=== PATIENT | female | born 1935 | race Caucasian/White ===

== ENCOUNTER 2016-04-02 20:01 | Emergency (ER) | payer MEDICARE, OTHER ==
[~2016-04-02] VITALS: Ht 165.1 cm; Wt 59.0 kg
[~2016-04-02 20:01] MED LIST: DILT40TA PO; FOLITAB22 PO; MER500PBAE IV; MORP30TA PO; NOR5T PO; PAR20T PO; VANC500I PO
[2016-04-02 21:35] LABS: Albumin 3.1 g/dL (3.4-5.0); BUN/Creatinine Ratio 15.6; Potassium 3.9 mmol/L (3.5-5.1)
[2016-04-02 21:38] LABS: Bilirubin, Total 0.8 mg/dL (0.2-1.0); Total Protein 6.6 g/dL (6.4-8.2)
[2016-04-02 22:11] LABS: DEFINITIVE VIEW TRANSMISSION; Hematocrit 15.8 % (36.0-46.0); Mean Corpuscular Hgb Conc. 34.1 g/dL (32.0-36.0); Mean Corpuscular Volume 93.9 fL (80.0-100.0); Mean Platelet Volume 11.4 fL (7.4-10.4); Platelet Count (auto) 96 10^3/uL (140-450); SUSPECT VIEW TRANSMISSION
[2016-04-02 22:16] LABS: Red Cell Distribution Width 22.2 % (11.6-16.0)
[2016-04-02 22:22] LABS: Hemoglobin 5.4 g/dL (12.2-16.2); White Blood Cell 1.5 10^3/uL (4.4-10.8)
[2016-04-02 22:23] LABS: Metamyelocytes % 0; Myelocytes % 0; Promyelocytes % 0; Reactive Lymphocytes 0
[2016-04-02] MEDS ORDERED: ONDANSETRON HCL 4 MG/2 ML VIAL IV ONE (23:00)
[2016-04-02] MEDS ORDERED: MORPHINE SULFATE 4 MG/ML SYRG IV ONE (23:00)
[2016-04-02 23:11] LABS: Anisocytosis Moderate; Giant Platelets Few; Ovalocytes FEW; Platelet Estimate Decreased; Tear Drop Cells FEW
[2016-04-03] VITALS (7 sets, daily range): BP systolic 93–127; BP diastolic 45–65
[2016-04-03] MEDS ORDERED: LORazepam 0.5 MG TAB PO ONE (03:00)
== END 2016-04-03 09:39 | disposition home or self-care (01) ==
LOC: ER 20:03
DX: M79.651 Pain in right thigh (principal); R53.1 Weakness; R50.9 Fever, unspecified; D64.9 Anemia, unspecified; D72.819 Decreased white blood cell count, unspecified; C90.00 Multiple myeloma not having achieved remission; Z96.641 Presence of right artificial hip joint; D69.6 Thrombocytopenia, unspecified; Z92.21 Personal history of antineoplastic chemotherapy; Z87.440 Personal history of urinary (tract) infections
CPT/HCPCS: 36415; 36430; 73700; 80053; 85007; 85027; 86850; 86900; 86901; 86920; 87040; 93005; 96374; 96375; 99285; J2270; J2405; J7030; P9016

== ENCOUNTER 2016-07-14 11:23 | Inpatient (IN) | payer MEDICARE, OTHER ==
[~2016-07-14] VITALS: Ht 165.1 cm; Wt 50.2 kg
[2016-07-14] VITALS (10 sets, daily range): BP systolic 101–140; BP diastolic 48–70
[2016-07-14 12:31] LABS: DEFINITIVE VIEW TRANSMISSION; Hematocrit 20.4 % (36.0-46.0); Mean Corpuscular Hemoglobin 34.1 pg (28.0-32.0); Mean Corpuscular Volume 103.3 fL (80.0-100.0); Mean Platelet Volume 11.4 fL (7.4-10.4); Platelet Count (auto) 138 10^3/uL (140-450); SUSPECT VIEW TRANSMISSION; White Blood Cell 2.2 10^3/uL (4.4-10.8)
[2016-07-14 12:40] LABS: Red Cell Distribution Width 25.3 % (11.6-16.0)
[2016-07-14 12:42] LABS: Hemoglobin 6.7 g/dL (12.2-16.2)
[2016-07-14 12:43] LABS: Metamyelocytes % 0; Myelocytes % 0; Promyelocytes % 0; Reactive Lymphocytes 0
[2016-07-14] MEDS ORDERED: KETOROLAC TROMETH 60MG/2ML VIAL IM ONE (13:00)
[2016-07-14 13:20] LABS: Albumin 3.5 g/dL (3.4-5.0); Alkaline Phosphatase 162 U/L (45-117); Anion Gap 9 (5-15); Aspartate Aminotransferase 14 U/L (15-37); BUN/Creatinine Ratio 22.1; Bilirubin, Total 0.9 mg/dL (0.2-1.0); Blood Urea Nitrogen 15 mg/dL (7-18); Calcium 8.4 mg/dL (8.5-10.1); Carbon Dioxide 29 mmol/L (21-32); Chloride 104 mmol/L (98-107); GFR African American 107 mL/min; GFR Non-African American 88 mL/min; Glucose 82 mg/dL (74-106); Sodium 142 mmol/L (136-145); Total Protein 6.9 g/dL (6.4-8.2)
[2016-07-14 13:54] LABS: Anisocytosis Moderate; Platelet Estimate Decreased
[2016-07-14] MEDS ORDERED: MORPHINE SULF INJ 2 MG/ML SYRINGE 1ML IV PRN (16:15)
[2016-07-14] MEDS ORDERED: LORazepam 0.5 MG TAB PO PRN (16:15)
[2016-07-14] MEDS ORDERED: PROCHLORPERAZINE EDISYLATE 5 MG/ML 2ML VIAL IV PRN (16:15)
[2016-07-14] MEDS ORDERED: LACTULOSE 20Gm/30ML SOLN PO PRN (16:15)
[2016-07-14] MEDS ORDERED: NITROGLYCERIN 0.4 MG SL TAB SL PRN (16:15)
[2016-07-14] MEDS ORDERED: PANTOPRAZOLE SODIUM 40 MG/10 ML VIAL IV ONE (16:15)
[2016-07-14] MEDS ORDERED: ACETAMINOPHEN 500 MG TAB PO PRN (16:15)
[2016-07-14] MEDS ORDERED: ASPirin 81 mg TAB PO ONE (16:45)
[2016-07-14] MEDS ORDERED: ENOXAPARIN SOD 40 MG/0.4 ML SYRINGE SC ONE (16:45)
[2016-07-14 16:49] LABS: INR 1.08 (0.9-1.15); Prothrombin Time 11.7 sec (9.37-12.3)
[2016-07-14 17:00] LABS: Temperature: 23.1 C (20.0-25.0)
[2016-07-14] MEDS: SODIUM CHLORIDE 0.9% 1,000 ML IV SCH (17:12)
[2016-07-14 19:27] LABS: Hematocrit 17.9 % (36.0-46.0)
[2016-07-14] MEDS ORDERED: LORazepam 2MG/ML-1ML VIAL IV PRN (20:15)
[2016-07-14] MEDS: HYDROcodone-ACET 5/325MG TAB PO PRN (21:11)
[2016-07-14] MEDS: TEMAZEPAM 15 MG CAP PO PRN (22:55)
[2016-07-15 01:05] LABS: Hematocrit 25.6 % (36.0-46.0); Hemoglobin 8.6 g/dL (12.2-16.2)
[2016-07-15 05:00] VITALS: BP 126/78
[2016-07-15] MEDS: SODIUM CHLORIDE 0.9% 1,000 ML IV SCH (05:08)
[2016-07-15 06:18] LABS: DEFINITIVE VIEW TRANSMISSION; Hematocrit 26.7 % (36.0-46.0); Mean Corpuscular Hgb Conc. 33.7 g/dL (32.0-36.0); Mean Corpuscular Volume 97.8 fL (80.0-100.0); Mean Platelet Volume 10.6 fL (7.4-10.4); Platelet Count (auto) 99 10^3/uL (140-450); SUSPECT VIEW TRANSMISSION
[2016-07-15 06:29] LABS: Potassium 3.7 mmol/L (3.5-5.1)
[2016-07-15 06:34] LABS: Albumin 3.1 g/dL (3.4-5.0); BUN/Creatinine Ratio 23.3; Calcium 8.1 mg/dL (8.5-10.1); Red Cell Distribution Width 21.9 % (11.6-16.0)
[2016-07-15 06:35] LABS: White Blood Cell 1.7 10^3/uL (4.4-10.8)
[2016-07-15 06:36] LABS: Metamyelocytes % 0; Myelocytes % 0; Promyelocytes % 0; Reactive Lymphocytes 0
[2016-07-15 06:54] LABS: Bilirubin, Total 2.3 mg/dL (0.2-1.0)
[2016-07-15 07:42] LABS: Anisocytosis Moderate; Platelet Estimate Decreased
[2016-07-15 07:43] LABS: Ovalocytes FEW; Tear Drop Cells FEW
[2016-07-15 09:00] VITALS: BP 138/68
[2016-07-15] MEDS: PANTOPRAZOLE 40 MG TAB PO SCH (09:17)
[2016-07-15] MEDS: CYANOCOBALAMIN 500 MCG TAB PO SCH (09:18)
[2016-07-15] MEDS ORDERED: ENOXAPARIN SOD 40 MG/0.4 ML SYRINGE SC SCH (10:00)
[2016-07-15] MEDS ORDERED: ASPirin 81 mg TAB PO SCH (10:00)
[2016-07-15] MEDS: HYDROcodone-ACET 5/325MG TAB PO PRN ×2 (12:59→21:29)
[2016-07-15 13:00] VITALS: BP 138/64
[2016-07-15] MEDS ORDERED: FILGRASTIM 300 MCG INJ VIAL SC ONE (14:30)
[2016-07-15] MEDS: PARoxetine 20 MG TAB PO SCH (14:52)
[2016-07-15 17:02] VITALS: BP 133/75
[2016-07-15] MEDS: MORPHINE SULF INJ 2 MG/ML SYRINGE 1ML IV PRN (20:20)
[2016-07-15] MEDS: TEMAZEPAM 15 MG CAP PO PRN (21:29)
[2016-07-15 21:32] VITALS: BP 153/74
[2016-07-16] MEDS: MORPHINE SULF INJ 2 MG/ML SYRINGE 1ML IV PRN ×2 (03:08→11:49)
[2016-07-16 04:34] VITALS: BP 150/76
[2016-07-16 06:42] LABS: Basophils # (auto) 0 uL; Basophils % (auto) 0.1 % (0.0-2.0); DEFINITIVE VIEW TRANSMISSION; Eosinophils # (auto) 0 uL; Hematocrit 27.5 % (36.0-46.0); Hemoglobin 9.2 g/dL (12.2-16.2); Lymphocytes # (auto) 0.6 uL; Lymphocytes % (auto) 5.3 % (10.0-50.0); Mean Corpuscular Hemoglobin 33.2 pg (28.0-32.0); Mean Corpuscular Hgb Conc. 33.6 g/dL (32.0-36.0); Mean Corpuscular Volume 98.9 fL (80.0-100.0); Mean Platelet Volume 11.5 fL (7.4-10.4); Monocytes # (auto) 0.2 uL; Monocytes % (auto) 2.1 % (0.0-12.0); Neutrophils # (auto) 10.8 uL; Neutrophils % (auto) 92.5 % (37.0-80.0); Platelet Count (auto) 135 10^3/uL (140-450); SUSPECT VIEW TRANSMISSION; White Blood Cell 11.6 10^3/uL (4.4-10.8)
[2016-07-16 06:44] LABS: Red Cell Distribution Width 22.8 % (11.6-16.0)
[2016-07-16 07:33] LABS: Anisocytosis Slight; Giant Platelets Few; Large Platelets FEW; Platelet Estimate Decreased
[2016-07-16] MEDS ORDERED: CYAN500T2 PO (07:40)
[2016-07-16 08:00] VITALS: BP 131/63
[2016-07-16] MEDS: HYDROcodone-ACET 5/325MG TAB PO PRN (08:11)
[2016-07-16 09:00] VITALS: BP 131/63
[2016-07-16] MEDS ORDERED: FILGRASTIM 300 MCG INJ VIAL SC SCH (10:00)
[2016-07-16] MEDS: CYANOCOBALAMIN 500 MCG TAB PO SCH (10:30)
[2016-07-16] MEDS: PARoxetine 20 MG TAB PO SCH (10:30)
[2016-07-16] MEDS: PANTOPRAZOLE 40 MG TAB PO SCH (10:31)
[2016-07-16 10:53] VITALS: BP 131/63
[2016-07-16 13:00] VITALS: BP 136/60
== END 2016-07-16 14:58 | disposition home health service (06) | DRG 691 ==
LOC: ER 11:28 → TELE 11:29 → TELE-WESTW 20:58 → WEST WING 07-15 15:13
PROVIDERS: ADMIT Internal Medicine; ATTEND Internal Medicine
PROC: 30233N1 Transfusion of Nonautologous Red Blood Cells into Peripheral Vein, Percutaneous Approach (ICD-10-PCS; principal; 2016-07-14)
DX: C90.00 Multiple myeloma not having achieved remission (principal); G93.41 Metabolic encephalopathy; D61.818 Other pancytopenia; S32.10XA Unspecified fracture of sacrum, initial encounter for closed fracture; I69.354 Hemiplegia and hemiparesis following cerebral infarction affecting left non-dominant side; M48.56XA Collapsed vertebra, not elsewhere classified, lumbar region, initial encounter for fracture; S30.0XXA Contusion of lower back and pelvis, initial encounter; M48.06 Spinal stenosis, lumbar region; I10 Essential (primary) hypertension; I48.91 Unspecified atrial fibrillation; I67.2 Cerebral atherosclerosis; M85.80 Other specified disorders of bone density and structure, unspecified site; N39.498 Other specified urinary incontinence; Z96.649 Presence of unspecified artificial hip joint; D32.9 Benign neoplasm of meninges, unspecified; M19.90 Unspecified osteoarthritis, unspecified site; M53.3 Sacrococcygeal disorders, not elsewhere classified; W18.30XA Fall on same level, unspecified, initial encounter; Z66 Do not resuscitate; Z87.440 Personal history of urinary (tract) infections; Z90.710 Acquired absence of both cervix and uterus; Z90.49 Acquired absence of other specified parts of digestive tract; Z80.9 Family history of malignant neoplasm, unspecified; Z88.0 Allergy status to penicillin; Y93.89 Activity, other specified; Y92.89 Other specified places as the place of occurrence of the external cause; Y99.8 Other external cause status
CPT/HCPCS: 36415; 70450; 70551; 71010; 72131; 72220; 80053; 82270; 82550; 82607; 82746; 83735; 84443; 84484; 85007; 85014; 85018; 85025; 85027; 85610; 85730; 86850; 86900; 86901; 86920; 87081; 87493; 93005; 95819; 96361; 96372; 96374; C9113; J1442; J1885

== ENCOUNTER 2017-04-25 13:03 | Inpatient (IN) | payer MEDICARE, OTHER ==
[~2017-04-25] VITALS: Ht 165.1 cm; Wt 62.1 kg
[~2017-04-25 13:03] MED LIST changes: +CALCTAB25 PO; +CYAN500T2 PO; +HYDR-4683 PO; -MER500PBAE IV; -NOR5T PO; -VANC500I PO
[2017-04-25] MEDS ORDERED: SODIUM CHLORIDE 0.9% 1,000 ML IV ONE (13:30)
[2017-04-25] MEDS ORDERED: FAMOTIDINE (10MG/ML) 2ML VL IV ONE (14:30)
[2017-04-25] MEDS ORDERED: ACETAMINOPHEN 325 MG TAB PO PRN (14:30)
[2017-04-25] MEDS ORDERED: DOCUSATE SOD 100 MG CAP PO PRN (14:30)
[2017-04-25] MEDS ORDERED: NITROGLYCERIN 0.4 MG SL TAB SL PRN (14:30)
[2017-04-25] MEDS ORDERED: PANTOPRAZOLE 40 MG/10 ML VIAL IV ONE (14:30)
[2017-04-25] MEDS ORDERED: MORPHINE SULF INJ 2 MG/ML SYRINGE 1ML IV PRN (14:30)
[2017-04-25] MEDS: SODIUM CHLORIDE 0.9% 1,000 ML IV SCH (14:34)
[2017-04-25 14:44] LABS: Eosinophils # (auto) 0 uL; Lymphocytes # (auto) 0.6 uL; Nucleated Red Blood Cells % 0.1 %; Red Blood Cells 1.87 10^6/uL (4.0-5.20)
[2017-04-25 14:46] LABS: Basophils # (auto) 0.1 uL; Basophils % (auto) 0.5 % (0.0-2.0); Lymphocytes % (auto) 5.3 % (10.0-50.0); Mean Corpuscular Hemoglobin 34.1 pg (28.0-32.0); Mean Corpuscular Hgb Conc. 31.7 g/dL (32.0-36.0); Mean Corpuscular Volume 107.5 fL (80.0-100.0); Monocytes # (auto) 0.7 uL; Monocytes % (auto) 5.9 % (0.0-12.0); Neutrophils # (auto) 10.3 uL; Neutrophils % (auto) 88.3 % (37.0-80.0); Platelet Count (auto) 144 10^3/uL (140-450); White Blood Cell 11.7 10^3/uL (4.4-10.8)
[2017-04-25 14:51] LABS: Alanine Aminotransferase 161 U/L (13-56); Albumin 3.4 g/dL (3.4-5.0); Alkaline Phosphatase 89 U/L (45-117); Anion Gap 11 (5-15); Aspartate Aminotransferase 170 U/L (15-37); BUN/Creatinine Ratio 24.5; Bilirubin, Total 1.3 mg/dL (0.2-1.0); Blood Alcohol < 3.0 mg/dL (0-5); Blood Urea Nitrogen 36 mg/dL (7-18); Calcium 8.1 mg/dL (8.5-10.1); Carbon Dioxide 26 mmol/L (21-32); Chloride 99 mmol/L (98-107); GFR African American 44 mL/min; GFR Non-African American 36 mL/min; Glucose 112 mg/dL (74-106); Magnesium 2.3 mg/dL (1.6-2.6); Potassium 4.5 mmol/L (3.5-5.1); Sodium 136 mmol/L (136-145); Total Protein 7.2 g/dL (6.4-8.2)
[2017-04-25 15:03] LABS: Hemoglobin 6.4 g/dL (12.2-16.2)
[2017-04-25 18:22] VITALS: BP 90/46
[2017-04-25 18:42] VITALS: BP 104/65
[2017-04-25 20:33] VITALS: BP 117/56
[2017-04-25 22:00] VITALS: BP 132/68
[2017-04-25 23:33] LABS: Hemoglobin 7.1 g/dL (12.2-16.2)
[2017-04-25 23:35] LABS: Hematocrit 21.6 % (36.0-46.0)
[2017-04-26] VITALS (10 sets, daily range): BP systolic 95–149; BP diastolic 48–71
[2017-04-26] MEDS ORDERED: cefTRIAXone 1GM/10ml IVPUSH 10 ML IV ONE (05:00)
[2017-04-26] MEDS: SODIUM CHLORIDE 0.9% 1,000 ML IV SCH ×2 (05:34→21:43)
[2017-04-26 07:28] LABS: Basophils # (auto) 0 uL; Basophils % (auto) 0.1 % (0.0-2.0); Eosinophils # (auto) 0 uL; Lymphocytes # (auto) 0.3 uL; Lymphocytes % (auto) 3.8 % (10.0-50.0); Neutrophils # (auto) 6.8 uL; White Blood Cell 7.4 10^3/uL (4.4-10.8)
[2017-04-26 07:38] LABS: Hematocrit 19.4 % (36.0-46.0); Mean Corpuscular Hemoglobin 34.4 pg (28.0-32.0); Mean Corpuscular Volume 104.4 fL (80.0-100.0); Monocytes # (auto) 0.4 uL; Monocytes % (auto) 4.7 % (0.0-12.0); Neutrophils % (auto) 91.4 % (37.0-80.0); Nucleated Red Blood Cells % 0.2 %; Platelet Count (auto) 96 10^3/uL (140-450); Red Blood Cells 1.85 10^6/uL (4.0-5.20)
[2017-04-26 07:39] LABS: Hemoglobin 6.4 g/dL (12.2-16.2)
[2017-04-26 08:02] LABS: Albumin 2.7 g/dL (3.4-5.0); BUN/Creatinine Ratio 25.5; Bilirubin, Total 1.1 mg/dL (0.2-1.0); Potassium 4.2 mmol/L (3.5-5.1)
[2017-04-26] MEDS: BOOST PLUS 8 ounce PO SCH ×2 (12:00→18:00)
[2017-04-26] MEDS: PANTOPRAZOLE 40 MG/10 ML VIAL IV SCH (12:35)
[2017-04-26] MEDS: FAMOTIDINE (10MG/ML) 2ML VL IV SCH (12:35)
[2017-04-26] MEDS: MULTIPLE VITAMIN TAB PO SCH (12:36)
[2017-04-26] MEDS: KETOROLAC TROMETH 30 MG/ML 1ML VIAL IV PRN ×2 (15:32→21:43)
[2017-04-26 16:52] LABS: Hemoglobin 7.8 g/dL (12.2-16.2)
[2017-04-26] MEDS: ONDANSETRON HCL 4 MG/2 ML VIAL IV PRN (21:43)
[2017-04-27] VITALS (8 sets, daily range): BP systolic 113–147; BP diastolic 52–75
[2017-04-27] MEDS: ONDANSETRON HCL 4 MG/2 ML VIAL IV PRN (06:09)
[2017-04-27] MEDS: KETOROLAC TROMETH 30 MG/ML 1ML VIAL IV PRN ×2 (06:10→17:55)
[2017-04-27 06:32] LABS: Basophils # (auto) 0 uL; Eosinophils # (auto) 0 uL; Hemoglobin 7.8 g/dL (12.2-16.2); Lymphocytes # (auto) 0.3 uL; Monocytes # (auto) 0.2 uL; Neutrophils # (auto) 3.9 uL; White Blood Cell 4.4 10^3/uL (4.4-10.8)
[2017-04-27 06:35] LABS: Basophils % (auto) 0.2 % (0.0-2.0); Hematocrit 22.9 % (36.0-46.0); Lymphocytes % (auto) 7.6 % (10.0-50.0); Mean Corpuscular Hemoglobin 33.9 pg (28.0-32.0); Mean Corpuscular Hgb Conc. 34.2 g/dL (32.0-36.0); Mean Corpuscular Volume 99.1 fL (80.0-100.0); Monocytes % (auto) 5.3 % (0.0-12.0); Neutrophils % (auto) 86.9 % (37.0-80.0); Nucleated Red Blood Cells % 0.2 %; Platelet Count (auto) 80 10^3/uL (140-450); Red Blood Cells 2.31 10^6/uL (4.0-5.20); Red Cell Distribution Width 23.5 % (11.8-14.3)
[2017-04-27 06:42] LABS: Albumin 2.6 g/dL (3.4-5.0); BUN/Creatinine Ratio 28.4; Calcium 7.8 mg/dL (8.5-10.1); Potassium 3.9 mmol/L (3.5-5.1); Total Protein 5.7 g/dL (6.4-8.2)
[2017-04-27] MEDS: BOOST PLUS 8 ounce PO SCH ×3 (08:00→17:55)
[2017-04-27] MEDS: cefTRIAXone 1GM/10ml IVPUSH 10 ML IV SCH (09:34)
[2017-04-27] MEDS: PANTOPRAZOLE 40 MG/10 ML VIAL IV SCH (09:35)
[2017-04-27] MEDS: FAMOTIDINE (10MG/ML) 2ML VL IV SCH (09:35)
[2017-04-27] MEDS: MULTIPLE VITAMIN TAB PO SCH (09:37)
[2017-04-27] MEDS: HYDROcodone-ACET 5/325MG TAB PO PRN ×2 (09:38→20:48)
[2017-04-27] MEDS: SODIUM CHLORIDE 0.9% 1,000 ML IV SCH (16:16)
[2017-04-27] MEDS ORDERED: MORPHINE SULFATE 4 MG/ML SYR/VIAL IV PRN (20:00)
[2017-04-28] MEDS: KETOROLAC TROMETH 30 MG/ML 1ML VIAL IV PRN ×3 (03:04→21:39)
[2017-04-28 05:05] VITALS: BP 155/77
[2017-04-28] MEDS: HYDROcodone-ACET 5/325MG TAB PO PRN ×3 (06:35→17:08)
[2017-04-28] MEDS: BOOST PLUS 8 ounce PO SCH ×3 (08:00→17:51)
[2017-04-28 08:07] LABS: Basophils # (auto) 0 uL; Basophils % (auto) 0.3 % (0.0-2.0); Eosinophils # (auto) 0 uL; Eosinophils % (auto) 0.4 % (0.0-7.0); Hematocrit 27.3 % (36.0-46.0); Hemoglobin 9.3 g/dL (12.2-16.2); Lymphocytes # (auto) 0.5 uL; Lymphocytes % (auto) 11.3 % (10.0-50.0); Mean Corpuscular Hemoglobin 33.5 pg (28.0-32.0); Mean Corpuscular Hgb Conc. 34.1 g/dL (32.0-36.0); Monocytes # (auto) 0.2 uL; Monocytes % (auto) 5.7 % (0.0-12.0); Neutrophils # (auto) 3.3 uL; Neutrophils % (auto) 82.3 % (37.0-80.0); Nucleated Red Blood Cells % 0.2 %; Platelet Count (auto) 96 10^3/uL (140-450); Red Blood Cells 2.79 10^6/uL (4.0-5.20)
[2017-04-28 08:15] LABS: BUN/Creatinine Ratio 30.5; Calcium 8.3 mg/dL (8.5-10.1); Potassium 3.9 mmol/L (3.5-5.1)
[2017-04-28] MEDS: SODIUM CHLORIDE 0.9% 1,000 ML IV SCH ×2 (08:46→17:51)
[2017-04-28] MEDS: cefTRIAXone 1GM/10ml IVPUSH 10 ML IV SCH (08:48)
[2017-04-28 09:00] VITALS: BP 137/88
[2017-04-28 09:03] LABS: Red Cell Distribution Width 22.6 % (11.8-14.3)
[2017-04-28] MEDS: PANTOPRAZOLE 40 MG/10 ML VIAL IV SCH (09:48)
[2017-04-28] MEDS: MULTIPLE VITAMIN TAB PO SCH (09:48)
[2017-04-28] MEDS: FAMOTIDINE (10MG/ML) 2ML VL IV SCH (09:49)
[2017-04-28 11:17] LABS: Albumin 2.5 g/dL (3.4-5.0); BUN/Creatinine Ratio 28.1; Bilirubin, Total 0.5 mg/dL (0.2-1.0); Calcium 7.9 mg/dL (8.5-10.1); Total Protein 5.7 g/dL (6.4-8.2)
[2017-04-28 11:51] LABS: Hematocrit 25.8 % (36.0-46.0); Hemoglobin 8.7 g/dL (12.2-16.2); Mean Corpuscular Hgb Conc. 33.7 g/dL (32.0-36.0); Platelet Count (auto) 94 10^3/uL (140-450); Red Blood Cells 2.63 10^6/uL (4.0-5.20)
[2017-04-28 12:03] LABS: Red Cell Distribution Width 22.1 % (11.8-14.3)
[2017-04-28 12:04] LABS: Band Neutrophils % (manual) 0; Basophils % (manual) 0 (0.0-2.0); Blast Cells 0; Metamyelocytes % 0; Myelocytes % 0; Promyelocytes % 0; Reactive Lymphocytes 0
[2017-04-28 13:00] VITALS: BP 129/87
[2017-04-28 13:47] LABS: Eosinophils % (manual) 1 (0-7); Lymphocytes % (manual) 16 (10.0-50.0); Monocytes % (manual) 5 (0-12)
[2017-04-28 17:00] VITALS: BP 140/71
[2017-04-28 21:33] VITALS: BP 155/74
[2017-04-29] MEDS: HYDROcodone-ACET 5/325MG TAB PO PRN ×4 (00:02→23:54)
[2017-04-29] MEDS: KETOROLAC TROMETH 30 MG/ML 1ML VIAL IV PRN ×3 (03:14→19:35)
[2017-04-29 05:08] VITALS: BP 147/88
[2017-04-29 07:08] LABS: Basophils # (auto) 0 uL; Basophils % (auto) 0.2 % (0.0-2.0); Eosinophils # (auto) 0 uL; Eosinophils % (auto) 0.7 % (0.0-7.0); Hematocrit 28.9 % (36.0-46.0); Hemoglobin 9.6 g/dL (12.2-16.2); Lymphocytes # (auto) 0.6 uL; Mean Corpuscular Hgb Conc. 33.2 g/dL (32.0-36.0); Mean Corpuscular Volume 99.4 fL (80.0-100.0); Monocytes # (auto) 0.3 uL; Monocytes % (auto) 6.4 % (0.0-12.0); Neutrophils # (auto) 3.3 uL; Neutrophils % (auto) 78.7 % (37.0-80.0); Nucleated Red Blood Cells % 0.1 %; Platelet Count (auto) 121 10^3/uL (140-450); Red Blood Cells 2.91 10^6/uL (4.0-5.20); White Blood Cell 4.2 10^3/uL (4.4-10.8)
[2017-04-29 07:19] LABS: Calcium 8.4 mg/dL (8.5-10.1); Potassium 4.2 mmol/L (3.5-5.1)
[2017-04-29 07:21] LABS: BUN/Creatinine Ratio 29.4
[2017-04-29 07:35] LABS: Red Cell Distribution Width 22.7 % (11.8-14.3)
[2017-04-29 09:00] VITALS: BP 147/69
[2017-04-29] MEDS: BOOST PLUS 8 ounce PO SCH ×3 (09:52→17:47)
[2017-04-29] MEDS: FAMOTIDINE (10MG/ML) 2ML VL IV SCH (09:52)
[2017-04-29] MEDS: cefTRIAXone 1GM/10ml IVPUSH 10 ML IV SCH (09:52)
[2017-04-29] MEDS: PANTOPRAZOLE 40 MG/10 ML VIAL IV SCH (09:53)
[2017-04-29] MEDS: MULTIPLE VITAMIN TAB PO SCH (09:53)
[2017-04-29 11:45] LABS: INR 1.1 (0.9-1.15); Partial Thromboplastin Time 30.1 sec (22.64-33.71)
[2017-04-29 13:00] VITALS: BP 166/91
[2017-04-29] MEDS: ONDANSETRON HCL 4 MG/2 ML VIAL IV PRN (13:29)
[2017-04-29 17:00] VITALS: BP 145/68
[2017-04-29] MEDS: SODIUM CHLORIDE 0.9% 1,000 ML IV SCH (17:47)
[2017-04-29] MEDS ORDERED: DIPHENOXYLATE W/ATROPINE 2.5 MG TAB PO PRN (20:30)
[2017-04-29] MEDS: TEMAZEPAM 15 MG CAP PO PRN (22:03)
[2017-04-30] MEDS: KETOROLAC TROMETH 30 MG/ML 1ML VIAL IV PRN ×2 (02:38→10:06)
[2017-04-30] MEDS: HYDROcodone-ACET 5/325MG TAB PO PRN ×4 (05:26→20:49)
[2017-04-30 07:10] LABS: BUN/Creatinine Ratio 23.9; Calcium 8.4 mg/dL (8.5-10.1); Potassium 3.9 mmol/L (3.5-5.1)
[2017-04-30 08:19] LABS: Hematocrit 31.3 % (36.0-46.0); Hemoglobin 10.1 g/dL (12.2-16.2); Mean Corpuscular Hemoglobin 32.4 pg (28.0-32.0); Mean Corpuscular Hgb Conc. 32.3 g/dL (32.0-36.0); Mean Corpuscular Volume 100.3 fL (80.0-100.0); Platelet Count (auto) 124 10^3/uL (140-450); Red Blood Cells 3.12 10^6/uL (4.0-5.20); White Blood Cell 3.7 10^3/uL (4.4-10.8)
[2017-04-30 08:43] LABS: Red Cell Distribution Width 22.5 % (11.8-14.3)
[2017-04-30] MEDS: BOOST PLUS 8 ounce PO SCH ×3 (08:43→17:55)
[2017-04-30 08:45] LABS: Band Neutrophils % (manual) 0; Basophils % (manual) 0 (0.0-2.0); Blast Cells 0; Metamyelocytes % 0; Myelocytes % 0; Promyelocytes % 0; Reactive Lymphocytes 0
[2017-04-30 09:00] VITALS: BP 152/70
[2017-04-30] MEDS: MULTIPLE VITAMIN TAB PO SCH (10:05)
[2017-04-30 10:06] LABS: Eosinophils % (manual) 1 (0-7); Lymphocytes % (manual) 24 (10.0-50.0); Monocytes % (manual) 12 (0-12)
[2017-04-30] MEDS: FAMOTIDINE (10MG/ML) 2ML VL IV SCH (10:06)
[2017-04-30] MEDS: cefTRIAXone 1GM/10ml IVPUSH 10 ML IV SCH (10:06)
[2017-04-30] MEDS: PANTOPRAZOLE 40 MG/10 ML VIAL IV SCH (10:06)
[2017-04-30] MEDS: SODIUM CHLORIDE 0.9% 1,000 ML IV SCH (10:56)
[2017-04-30 12:50] VITALS: BP 163/81
[2017-04-30] MEDS: DILTIAZEM HCL 60 MG TAB PO SCH ×2 (13:46→20:49)
[2017-04-30] MEDS: ONDANSETRON HCL 4 MG/2 ML VIAL IV PRN (13:50)
[2017-04-30 17:00] VITALS: BP 140/86
[2017-04-30] MEDS: TEMAZEPAM 15 MG CAP PO PRN (20:50)
[2017-04-30 22:00] VITALS: BP 152/57
[2017-05-01] MEDS: HYDROcodone-ACET 5/325MG TAB PO PRN ×4 (01:55→15:24)
[2017-05-01 04:30] VITALS: BP 132/65
[2017-05-01] MEDS: DILTIAZEM HCL 60 MG TAB PO SCH ×2 (06:18→15:24)
[2017-05-01 06:52] LABS: Basophils # (auto) 0 uL; Basophils % (auto) 0.6 % (0.0-2.0); Eosinophils # (auto) 0.1 uL; Eosinophils % (auto) 2.2 % (0.0-7.0); Hematocrit 26.9 % (36.0-46.0); Lymphocytes # (auto) 0.8 uL; Lymphocytes % (auto) 29.3 % (10.0-50.0); Mean Corpuscular Hemoglobin 32.9 pg (28.0-32.0); Mean Corpuscular Hgb Conc. 33.5 g/dL (32.0-36.0); Monocytes # (auto) 0.2 uL; Monocytes % (auto) 6.5 % (0.0-12.0); Neutrophils # (auto) 1.7 uL; Neutrophils % (auto) 61.4 % (37.0-80.0); Nucleated Red Blood Cells % 0.1 %; Platelet Count (auto) 112 10^3/uL (140-450); Red Blood Cells 2.75 10^6/uL (4.0-5.20); White Blood Cell 2.8 10^3/uL (4.4-10.8)
[2017-05-01 07:08] LABS: Red Cell Distribution Width 21.8 % (11.8-14.3)
[2017-05-01 07:10] LABS: Potassium 4.1 mmol/L (3.5-5.1)
[2017-05-01 07:17] LABS: BUN/Creatinine Ratio 21.4; Calcium 8.3 mg/dL (8.5-10.1)
[2017-05-01] MEDS: cefTRIAXone 1GM/10ml IVPUSH 10 ML IV SCH (09:52)
[2017-05-01] MEDS: BOOST PLUS 8 ounce PO SCH ×2 (09:53→12:18)
[2017-05-01] MEDS: FAMOTIDINE (10MG/ML) 2ML VL IV SCH (10:06)
[2017-05-01] MEDS: PANTOPRAZOLE 40 MG/10 ML VIAL IV SCH (10:06)
[2017-05-01] MEDS: MULTIPLE VITAMIN TAB PO SCH (10:06)
[2017-05-01] MEDS: ONDANSETRON HCL 4 MG/2 ML VIAL IV PRN ×2 (11:11→15:24)
[2017-05-01 14:22] VITALS: BP 127/66
== END 2017-05-01 17:56 | disposition home or self-care (01) | DRG 720 ==
LOC: EDBD 13:03 → ER 13:03 → TELE 13:04 → TELE-WESTW 21:45
PROVIDERS: ADMIT Internal Medicine; ATTEND Internal Medicine
PROC: 30233N1 Transfusion of Nonautologous Red Blood Cells into Peripheral Vein, Percutaneous Approach (ICD-10-PCS; principal; 2017-04-25)
DX: A41.51 Sepsis due to Escherichia coli [E. coli] (principal); N17.2 Acute kidney failure with medullary necrosis; I63.9 Cerebral infarction, unspecified; G93.41 Metabolic encephalopathy; D61.818 Other pancytopenia; E44.0 Moderate protein-calorie malnutrition; C90.00 Multiple myeloma not having achieved remission; I48.92 Unspecified atrial flutter; I10 Essential (primary) hypertension; I48.0 Paroxysmal atrial fibrillation; K72.90 Hepatic failure, unspecified without coma; F32.9 Major depressive disorder, single episode, unspecified; Z96.643 Presence of artificial hip joint, bilateral; D46.9 Myelodysplastic syndrome, unspecified; K59.00 Constipation, unspecified; G30.9 Alzheimer's disease, unspecified; F02.80 Dementia in other diseases classified elsewhere, unspecified severity, without behavioral disturbance, psychotic disturbance, mood disturbance, and anxiety; R91.8 Other nonspecific abnormal finding of lung field; G81.94 Hemiplegia, unspecified affecting left nondominant side; E11.9 Type 2 diabetes mellitus without complications; J44.9 Chronic obstructive pulmonary disease, unspecified; Z80.1 Family history of malignant neoplasm of trachea, bronchus and lung; Z80.49 Family history of malignant neoplasm of other genital organs; Z85.828 Personal history of other malignant neoplasm of skin; Z90.49 Acquired absence of other specified parts of digestive tract; Z90.710 Acquired absence of both cervix and uterus; Z88.0 Allergy status to penicillin; Z79.899 Other long term (current) drug therapy; Z92.3 Personal history of irradiation; Z71.3 Dietary counseling and surveillance; Z68.22 Body mass index [BMI] 22.0-22.9, adult; Z87.440 Personal history of urinary (tract) infections
CPT/HCPCS: 36415; 36430; 51702; 70450; 70551; 71250; 80048; 80053; 80320; 82140; 83605; 83615; 83735; 84484; 85007; 85014; 85018; 85025; 85027; 85610; 85730; 86850; 86900; 86901; 86920; 87040; 87045; 87077; 87086; 87088; 87186; 87493; 87899; 92523; 92526; 92610; 93005; 93306; 93886; 95819; 96361; 96374; 96375; 97116; 97163; 97530; C9113; J1642; J1885; J2405; J3490

== ENCOUNTER 2017-05-23 21:15 | Inpatient (IN) | payer MEDICARE, OTHER ==
[~2017-05-23] VITALS: Ht 162.6 cm; Wt 52.6 kg
[2017-05-23 21:57] LABS: Hematocrit 19.9 % (36.0-46.0); White Blood Cell 2.5 10^3/uL (4.4-10.8)
[2017-05-23 21:58] LABS: Mean Corpuscular Hemoglobin 33.6 pg (28.0-32.0); Mean Corpuscular Hgb Conc. 33.9 g/dL (32.0-36.0); Mean Corpuscular Volume 99.2 fL (80.0-100.0); Platelet Count (auto) 210 10^3/uL (140-450); Red Blood Cells 2.01 10^6/uL (4.0-5.20)
[2017-05-23 22:15] LABS: Hemoglobin 6.8 g/dL (12.2-16.2); Red Cell Distribution Width 24.2 % (11.8-14.3)
[2017-05-23 22:16] LABS: Basophils % (manual) 0 (0.0-2.0); Promyelocytes % 0
[2017-05-23 22:17] LABS: Blast Cells 0; Reactive Lymphocytes 0
[2017-05-23 22:18] LABS: Alanine Aminotransferase 24 U/L (13-56); Albumin 3.4 g/dL (3.4-5.0); Alkaline Phosphatase 105 U/L (45-117); Anion Gap 8 (5-15); Aspartate Aminotransferase 13 U/L (15-37); BUN/Creatinine Ratio 13.9; Bilirubin, Total 0.6 mg/dL (0.2-1.0); Blood Urea Nitrogen 10 mg/dL (7-18); Calcium 8.1 mg/dL (8.5-10.1); Carbon Dioxide 30 mmol/L (21-32); Chloride 98 mmol/L (98-107); GFR African American 99 mL/min; GFR Non-African American 82 mL/min; Glucose 88 mg/dL (74-106); Potassium 3.5 mmol/L (3.5-5.1); Sodium 136 mmol/L (136-145); Total Protein 6.7 g/dL (6.4-8.2)
[2017-05-23 23:04] LABS: Band Neutrophils % (manual) 5; Eosinophils % (manual) 2 (0-7); Lymphocytes % (manual) 44 (10.0-50.0); Metamyelocytes % 2; Monocytes % (manual) 16 (0-12); Myelocytes % 1
[2017-05-24] VITALS (7 sets, daily range): BP systolic 110–138; BP diastolic 50–77
[2017-05-24] MEDS ORDERED: ONDANSETRON HCL 4 MG/2 ML VIAL IV ONE (00:15)
[2017-05-24] MEDS ORDERED: MORPHINE SULFATE 4 MG/ML SYR/VIAL IV ONE (00:15)
[2017-05-24 00:17] LABS: Urine Bacteria FEW /hpf (None Seen); Urine Blood TRACE /uL (Negative); Urine Specific Gravity 1.006 (1.001-1.035); Urine WBC 29 /hpf (0 - 5)
[2017-05-24] MEDS ORDERED: FUROSEMIDE 20 MG/2 ML VIAL IV ONE (02:15)
[2017-05-24] MEDS ORDERED: NITROGLYCERIN 0.4 MG SL TAB SL PRN (02:15)
[2017-05-24] MEDS ORDERED: ACETAMINOPHEN 500 MG TAB PO PRN (02:15)
[2017-05-24] MEDS ORDERED: MORPHINE SULFATE 4 MG/ML SYR/VIAL IV PRN (02:15)
[2017-05-24] MEDS ORDERED: ONDANSETRON HCL 4 MG/2 ML VIAL IV PRN (02:15)
[2017-05-24] MEDS: MORPHINE SULFATE 4 MG/ML SYR/VIAL IV PRN ×2 (03:12→08:56)
[2017-05-24] MEDS ORDERED: LINEZOLID 600MG/300ML 300 ML IV SCH (04:00)
[2017-05-24] MEDS: HYDROcodone-ACET 5/325MG TAB PO PRN ×4 (05:02→23:59)
[2017-05-24] MEDS: LINEZOLID 600MG/300ML 300 ML IV SCH ×2 (07:43→17:49)
[2017-05-24 13:44] LABS: Hematocrit 31.9 % (36.0-46.0); Hemoglobin 10.9 g/dL (12.2-16.2); Mean Corpuscular Hemoglobin 32.5 pg (28.0-32.0); Mean Corpuscular Volume 95.6 fL (80.0-100.0); Platelet Count (auto) 216 10^3/uL (140-450); Red Blood Cells 3.34 10^6/uL (4.0-5.20); Red Cell Distribution Width 18.1 % (11.8-14.3); White Blood Cell 2.5 10^3/uL (4.4-10.8)
[2017-05-24 14:05] LABS: Band Neutrophils % (manual) 0
[2017-05-24 14:06] LABS: Basophils % (manual) 0 (0.0-2.0); Blast Cells 0; Metamyelocytes % 0; Myelocytes % 0; Promyelocytes % 0; Reactive Lymphocytes 0
[2017-05-24 15:12] LABS: Eosinophils % (manual) 3 (0-7); Lymphocytes % (manual) 41 (10.0-50.0); Monocytes % (manual) 12 (0-12)
[2017-05-24] MEDS: CALCIUM CARB 500 MG CHEW TAB PO SCH (22:00)
[2017-05-24] MEDS: MORPHINE SULF 30 mg ER tab PO SCH (22:00)
[2017-05-25] MEDS: HYDROcodone-ACET 5/325MG TAB PO PRN ×4 (03:47→20:02)
[2017-05-25] MEDS: LINEZOLID 600MG/300ML 300 ML IV SCH ×2 (03:47→16:19)
[2017-05-25 04:54] VITALS: BP 134/75
[2017-05-25] MEDS ORDERED: KETOROLAC TROMETH 30 MG/ML 1ML VIAL IV ONE (06:30)
[2017-05-25 06:58] LABS: Hematocrit 30.7 % (36.0-46.0); Hemoglobin 10.5 g/dL (12.2-16.2); Mean Corpuscular Hgb Conc. 34.2 g/dL (32.0-36.0); Mean Corpuscular Volume 96.4 fL (80.0-100.0); Platelet Count (auto) 184 10^3/uL (140-450); Red Blood Cells 3.18 10^6/uL (4.0-5.20); Red Cell Distribution Width 17.9 % (11.8-14.3); White Blood Cell 3.5 10^3/uL (4.4-10.8)
[2017-05-25 07:15] LABS: BUN/Creatinine Ratio 17.7; Calcium 8.3 mg/dL (8.5-10.1); Potassium 3.7 mmol/L (3.5-5.1)
[2017-05-25 07:21] LABS: Band Neutrophils % (manual) 0; Monocytes % (manual) 0 (0-12)
[2017-05-25 07:22] LABS: Basophils % (manual) 0 (0.0-2.0); Blast Cells 0; Metamyelocytes % 0; Myelocytes % 0; Promyelocytes % 0; Reactive Lymphocytes 0
[2017-05-25] MEDS: PARoxetine 20 MG TAB PO SCH (08:41)
[2017-05-25] MEDS: CALCIUM CARB 500 MG CHEW TAB PO SCH ×2 (08:41→21:54)
[2017-05-25] MEDS: CYANOCOBALAMIN 500 MCG TAB PO SCH (08:41)
[2017-05-25] MEDS: MORPHINE SULF 30 mg ER tab PO SCH ×2 (08:41→21:54)
[2017-05-25] MEDS: FOLIC ACID 1 MG TAB PO SCH (08:41)
[2017-05-25 09:00] VITALS: BP 121/60
[2017-05-25 13:00] VITALS: BP 108/54
[2017-05-25 14:26] LABS: Eosinophils % (manual) 3 (0-7); Lymphocytes % (manual) 37 (10.0-50.0)
[2017-05-25 17:27] VITALS: BP 121/61
[2017-05-25 22:00] VITALS: BP 115/69
[2017-05-26] MEDS: LINEZOLID 600MG/300ML 300 ML IV SCH (04:20)
[2017-05-26] MEDS: HYDROcodone-ACET 5/325MG TAB PO PRN ×3 (04:21→18:14)
[2017-05-26 05:00] VITALS: BP 128/66
[2017-05-26 06:20] LABS: Hematocrit 30.2 % (36.0-46.0); Hemoglobin 10.1 g/dL (12.2-16.2)
[2017-05-26 08:30] VITALS: BP 119/59
[2017-05-26] MEDS: PARoxetine 20 MG TAB PO SCH (08:46)
[2017-05-26] MEDS: FOLIC ACID 1 MG TAB PO SCH (08:46)
[2017-05-26] MEDS: MORPHINE SULF 30 mg ER tab PO SCH ×2 (08:46→22:18)
[2017-05-26] MEDS: CALCIUM CARB 500 MG CHEW TAB PO SCH ×2 (08:47→22:17)
[2017-05-26] MEDS: CYANOCOBALAMIN 500 MCG TAB PO SCH (08:47)
[2017-05-26 13:00] VITALS: BP 121/58
[2017-05-26] MEDS: metroNIDAZOLE 500 MG TAB PO SCH ×3 (14:32→23:48)
[2017-05-26 16:40] VITALS: BP 126/67
[2017-05-26 22:00] VITALS: BP 118/64
[2017-05-27] MEDS: HYDROcodone-ACET 5/325MG TAB PO PRN ×3 (00:09→12:45)
[2017-05-27 05:00] VITALS: BP 114/53
[2017-05-27] MEDS: metroNIDAZOLE 500 MG TAB PO SCH ×2 (05:36→12:45)
[2017-05-27 08:00] VITALS: BP 119/56
[2017-05-27 08:58] VITALS: BP 109/59
[2017-05-27] MEDS: MORPHINE SULF 30 mg ER tab PO SCH (10:05)
[2017-05-27] MEDS: FOLIC ACID 1 MG TAB PO SCH (10:05)
[2017-05-27] MEDS: CYANOCOBALAMIN 500 MCG TAB PO SCH (10:06)
[2017-05-27] MEDS: PARoxetine 20 MG TAB PO SCH (10:06)
[2017-05-27] MEDS: CALCIUM CARB 500 MG CHEW TAB PO SCH (10:06)
[2017-05-27 11:06] VITALS: BP 119/56
[2017-05-27 13:00] VITALS: BP 117/64
== END 2017-05-27 17:26 | disposition home health service (06) | DRG 660 ==
LOC: ER 21:15 → TELE 21:16 → TELE-EAST 05-24 16:13
PROVIDERS: ADMIT Nurse Practitioner Family; ATTEND Internal Medicine
PROC: 30233N1 Transfusion of Nonautologous Red Blood Cells into Peripheral Vein, Percutaneous Approach (ICD-10-PCS; principal; 2017-05-24)
DX: D61.810 Antineoplastic chemotherapy induced pancytopenia (principal); E44.0 Moderate protein-calorie malnutrition; C90.00 Multiple myeloma not having achieved remission; F03.90 Unspecified dementia, unspecified severity, without behavioral disturbance, psychotic disturbance, mood disturbance, and anxiety; I11.0 Hypertensive heart disease with heart failure; I69.354 Hemiplegia and hemiparesis following cerebral infarction affecting left non-dominant side; I50.9 Heart failure, unspecified; B95.2 Enterococcus as the cause of diseases classified elsewhere; N39.0 Urinary tract infection, site not specified; I48.91 Unspecified atrial fibrillation; E11.9 Type 2 diabetes mellitus without complications; J44.9 Chronic obstructive pulmonary disease, unspecified; Z16.21 Resistance to vancomycin; R31.9 Hematuria, unspecified; F32.9 Major depressive disorder, single episode, unspecified; F41.9 Anxiety disorder, unspecified; Z96.643 Presence of artificial hip joint, bilateral; Z85.828 Personal history of other malignant neoplasm of skin; M19.90 Unspecified osteoarthritis, unspecified site; Z80.49 Family history of malignant neoplasm of other genital organs; Z80.1 Family history of malignant neoplasm of trachea, bronchus and lung; Z88.1 Allergy status to other antibiotic agents; Z88.0 Allergy status to penicillin; Z90.49 Acquired absence of other specified parts of digestive tract; Z90.710 Acquired absence of both cervix and uterus; Z68.1 Body mass index [BMI] 19.9 or less, adult
CPT/HCPCS: 36415; 74176; 80048; 80053; 81001; 83880; 84484; 85007; 85014; 85018; 85027; 86850; 86900; 86901; 86920; 87040; 87081; 87086; 87493; 93005; 96374; 96375; J1642; J1885; J2405

== ENCOUNTER 2017-06-08 15:13 | Inpatient (IN) | payer MEDICARE, OTHER ==
[~2017-06-08] VITALS: Ht 160 cm; Wt 50.3 kg
[2017-06-08 15:51] LABS: Hemoglobin 8.7 g/dL (12.2-16.2); Mean Corpuscular Hemoglobin 33.3 pg (28.0-32.0); Mean Corpuscular Hgb Conc. 33.5 g/dL (32.0-36.0); Mean Corpuscular Volume 99.3 fL (80.0-100.0); Platelet Count (auto) 161 10^3/uL (140-450); Red Blood Cells 2.62 10^6/uL (4.0-5.20)
[2017-06-08 16:07] LABS: Albumin 3.3 g/dL (3.4-5.0); Anion Gap 5 (5-15); BUN/Creatinine Ratio 15.5; Blood Urea Nitrogen 9 mg/dL (7-18); Calcium 8.3 mg/dL (8.5-10.1); Carbon Dioxide 30 mmol/L (21-32); Chloride 104 mmol/L (98-107); GFR African American 128 mL/min; GFR Non-African American 106 mL/min; Glucose 90 mg/dL (74-106); Potassium 3.5 mmol/L (3.5-5.1); Sodium 139 mmol/L (136-145)
[2017-06-08] MEDS ORDERED: ALBUTEROL SULF 2.5 MG/0.5ML(0.5%) NEB SOLN NEB ONE (16:15)
[2017-06-08] MEDS ORDERED: IPRATROPIUM BROM 0.5 MG/2.5ML INH SOL NEB ONE (16:15)
[2017-06-08] MEDS ORDERED: methylPREDNISolone SOD SUCC 125 MG/2 ML VL IV ONE (16:15)
[2017-06-08 16:19] LABS: White Blood Cell 1.8 10^3/uL (4.4-10.8)
[2017-06-08 16:20] LABS: Alanine Aminotransferase 39 U/L (13-56); Alkaline Phosphatase 114 U/L (45-117); Aspartate Aminotransferase 29 U/L (15-37); Bilirubin, Total 0.5 mg/dL (0.2-1.0); Total Protein 6.6 g/dL (6.4-8.2)
[2017-06-08 16:21] LABS: Basophils % (manual) 0 (0.0-2.0); Blast Cells 0; Eosinophils % (manual) 0 (0-7); Metamyelocytes % 0; Myelocytes % 0; Promyelocytes % 0
[2017-06-08 17:29] LABS: Band Neutrophils % (manual) 1; Lymphocytes % (manual) 35 (10.0-50.0); Monocytes % (manual) 26 (0-12); Reactive Lymphocytes 2
[2017-06-08] MEDS ORDERED: AZTREONAM 1GM INJ 1 GM in D5W 5% 50 ML IV ONE (17:30)
[2017-06-08 18:43] LABS: Urine Bacteria MOD /hpf (None Seen); Urine Blood TRACE /uL (Negative); Urine Mucus FEW (None Seen); Urine Specific Gravity 1.022 (1.001-1.035); Urine WBC 64 /hpf (0 - 5); Urine WBC Clumps PRESENT /hpf (None Seen)
[2017-06-08] MEDS ORDERED: LEVOFLOXACIN 500MG 100 ML IV ONE ×2 (20:45→21:28)
[2017-06-08] MEDS ORDERED: MORPHINE SULFATE 4 MG/ML SYR/VIAL IV PRN (20:45)
[2017-06-08] MEDS ORDERED: ACETAMINOPHEN 325 MG TAB PO PRN (20:45)
[2017-06-08] MEDS ORDERED: DEXTROSE (50%) 50ML SYRG IV PRN (20:45)
[2017-06-08] MEDS ORDERED: NITROGLYCERIN 0.4 MG SL TAB SL PRN (20:45)
[2017-06-08] MEDS ORDERED: DOCUSATE SOD 100 MG CAP PO PRN (20:45)
[2017-06-08] MEDS ORDERED: ONDANSETRON HCL 4 MG/2 ML VIAL IV PRN (20:45)
[2017-06-08 21:32] VITALS: BP 114/49
[2017-06-08] MEDS: CALCIUM CARB 500 MG CHEW TAB PO SCH (22:13)
[2017-06-08] MEDS: DILTIAZEM HCL 60 MG TAB PO SCH (22:14)
[2017-06-08] MEDS: FAMOTIDINE 20 MG TAB PO SCH (22:14)
[2017-06-08 22:30] VITALS: BP 132/71
[2017-06-08 23:00] VITALS: BP 132/71
[2017-06-09] MEDS: ACCU-CHEK COMFORT CURVE STRIP VI SCH ×4 (00:02→16:54)
[2017-06-09] MEDS: InsuLIN REG 1unit/0.01ml Soln (100units/ml) SC SCH ×4 (00:14→16:55)
[2017-06-09] MEDS: HYDROcodone-ACET 5/325MG TAB PO PRN ×5 (00:15→21:43)
[2017-06-09] MEDS: IPRATROPIUM BROM 0.5 MG/2.5ML INH SOL NEB PRN ×3 (04:51→19:21)
[2017-06-09] MEDS: ALBUTEROL SULF 2.5 MG/0.5ML(0.5%) NEB SOLN NEB PRN ×3 (04:51→19:21)
[2017-06-09 05:35] VITALS: BP 135/63
[2017-06-09] MEDS ORDERED: FUROSEMIDE 20 MG/2 ML VIAL IV ONE (05:45)
[2017-06-09] MEDS: DILTIAZEM HCL 60 MG TAB PO SCH ×3 (05:46→21:51)
[2017-06-09 06:06] LABS: Basophils # (auto) 0 uL; Eosinophils # (auto) 0 uL; Hematocrit 26.4 % (36.0-46.0); Lymphocytes # (auto) 0.2 uL; Monocytes # (auto) 0.1 uL; Neutrophils # (auto) 0.2 uL
[2017-06-09 06:08] LABS: Basophils % (auto) 0.4 % (0.0-2.0); Lymphocytes % (auto) 41.3 % (10.0-50.0); Mean Corpuscular Hemoglobin 33.4 pg (28.0-32.0); Mean Corpuscular Volume 98.3 fL (80.0-100.0); Monocytes % (auto) 17.1 % (0.0-12.0); Neutrophils % (auto) 41.2 % (37.0-80.0); Nucleated Red Blood Cells % 1.3 %; Platelet Count (auto) 149 10^3/uL (140-450); Red Blood Cells 2.69 10^6/uL (4.0-5.20); Red Cell Distribution Width 19.8 % (11.8-14.3)
[2017-06-09 06:16] LABS: Albumin 3.2 g/dL (3.4-5.0); BUN/Creatinine Ratio 19.2; Calcium 8.6 mg/dL (8.5-10.1); Potassium 4.1 mmol/L (3.5-5.1)
[2017-06-09 06:20] LABS: Bilirubin, Total 0.5 mg/dL (0.2-1.0); Total Protein 6.5 g/dL (6.4-8.2)
[2017-06-09 06:26] LABS: White Blood Cell 0.5 10^3/uL (4.4-10.8)
[2017-06-09] MEDS: FILGRASTIM 300 MCG INJ VIAL SC SCH ×3 (06:30→10:52)
[2017-06-09 08:00] VITALS: BP 134/67
[2017-06-09 09:00] VITALS: BP 134/67
[2017-06-09] MEDS: ENOXAPARIN SOD 40 MG/0.4 ML SYRINGE SC SCH (10:37)
[2017-06-09] MEDS: FAMOTIDINE 20 MG TAB PO SCH (10:37)
[2017-06-09] MEDS: LEVOFLOXACIN 250MG 50 ML IV SCH (10:37)
[2017-06-09] MEDS: CALCIUM CARB 500 MG CHEW TAB PO SCH ×2 (10:37→21:51)
[2017-06-09 13:00] VITALS: BP 101/64
[2017-06-09 16:40] VITALS: BP 141/63
[2017-06-09] MEDS: PARoxetine 20 MG TAB PO SCH (16:53)
[2017-06-09] MEDS: TEMAZEPAM 15 MG CAP PO PRN (21:55)
[2017-06-09 22:00] VITALS: BP 126/56
[2017-06-10] MEDS: ACCU-CHEK COMFORT CURVE STRIP VI SCH ×4 (01:02→18:00)
[2017-06-10 05:00] VITALS: BP 129/63
[2017-06-10] MEDS: HYDROcodone-ACET 5/325MG TAB PO PRN ×3 (05:00→20:55)
[2017-06-10] MEDS: DILTIAZEM HCL 60 MG TAB PO SCH ×3 (05:49→20:56)
[2017-06-10] MEDS: InsuLIN REG 1unit/0.01ml Soln (100units/ml) SC SCH ×4 (06:00→18:00)
[2017-06-10] MEDS: IPRATROPIUM BROM 0.5 MG/2.5ML INH SOL NEB PRN (06:17)
[2017-06-10] MEDS: ALBUTEROL SULF 2.5 MG/0.5ML(0.5%) NEB SOLN NEB PRN (06:17)
[2017-06-10 06:25] LABS: Hematocrit 26.1 % (36.0-46.0); Hemoglobin 8.8 g/dL (12.2-16.2); Mean Corpuscular Hemoglobin 33.1 pg (28.0-32.0); Mean Corpuscular Hgb Conc. 33.8 g/dL (32.0-36.0); Platelet Count (auto) 197 10^3/uL (140-450); Red Blood Cells 2.66 10^6/uL (4.0-5.20); Red Cell Distribution Width 19.8 % (11.8-14.3); White Blood Cell 26.5 10^3/uL (4.4-10.8)
[2017-06-10 06:32] LABS: Basophils % (manual) 0 (0.0-2.0); Blast Cells 0; Eosinophils % (manual) 0 (0-7); Myelocytes % 0; Promyelocytes % 0; Reactive Lymphocytes 0
[2017-06-10 06:41] LABS: BUN/Creatinine Ratio 14.5; Calcium 8.3 mg/dL (8.5-10.1); Potassium 3.4 mmol/L (3.5-5.1)
[2017-06-10 09:00] VITALS: BP 105/65
[2017-06-10] MEDS: CALCIUM CARB 500 MG CHEW TAB PO SCH ×2 (09:19→20:56)
[2017-06-10] MEDS: LEVOFLOXACIN 250MG 50 ML IV SCH (09:19)
[2017-06-10] MEDS: FAMOTIDINE 20 MG TAB PO SCH (09:19)
[2017-06-10] MEDS: ENOXAPARIN SOD 40 MG/0.4 ML SYRINGE SC SCH (09:20)
[2017-06-10] MEDS: PARoxetine 20 MG TAB PO SCH (09:20)
[2017-06-10 13:00] VITALS: BP 123/56
[2017-06-10 15:17] LABS: Band Neutrophils % (manual) 1; Lymphocytes % (manual) 3 (10.0-50.0); Metamyelocytes % 3; Monocytes % (manual) 3 (0-12)
[2017-06-10] MEDS: MORPHINE SULFATE 4 MG/ML SYR/VIAL IV PRN (15:18)
[2017-06-10 17:00] VITALS: BP 143/38
[2017-06-10] MEDS: Boost Glucose Control 8 Ounces PO SCH (18:00)
[2017-06-10] MEDS: LOPERAMIDE HCL 2 MG CAP PO PRN (20:55)
[2017-06-10] MEDS: TEMAZEPAM 15 MG CAP PO PRN (20:58)
[2017-06-10 22:00] VITALS: BP 143/38
[2017-06-11] VITALS (7 sets, daily range): BP systolic 118–147; BP diastolic 38–73
[2017-06-11] MEDS: ACCU-CHEK COMFORT CURVE STRIP VI SCH ×4 (00:29→17:12)
[2017-06-11] MEDS: HYDROcodone-ACET 5/325MG TAB PO PRN ×2 (04:27→17:40)
[2017-06-11 05:14] LABS: Basophils # (auto) 0 uL; Basophils % (auto) 0.2 % (0.0-2.0); Eosinophils # (auto) 0 uL; Eosinophils % (auto) 0.1 % (0.0-7.0); Hematocrit 24.3 % (36.0-46.0); Hemoglobin 8.2 g/dL (12.2-16.2); Lymphocytes # (auto) 0.7 uL; Mean Corpuscular Hemoglobin 33.1 pg (28.0-32.0); Mean Corpuscular Hgb Conc. 33.9 g/dL (32.0-36.0); Mean Corpuscular Volume 97.8 fL (80.0-100.0); Monocytes # (auto) 0.5 uL; Monocytes % (auto) 5.4 % (0.0-12.0); Neutrophils % (auto) 86.3 % (37.0-80.0); Nucleated Red Blood Cells % 0.1 %; Platelet Count (auto) 156 10^3/uL (140-450); Red Blood Cells 2.48 10^6/uL (4.0-5.20); White Blood Cell 9.3 10^3/uL (4.4-10.8)
[2017-06-11 05:17] LABS: Red Cell Distribution Width 20.6 % (11.8-14.3)
[2017-06-11 05:30] LABS: BUN/Creatinine Ratio 10.9; Calcium 8.4 mg/dL (8.5-10.1); Potassium 3.4 mmol/L (3.5-5.1)
[2017-06-11] MEDS: DILTIAZEM HCL 60 MG TAB PO SCH ×3 (05:47→21:51)
[2017-06-11] MEDS: InsuLIN REG 1unit/0.01ml Soln (100units/ml) SC SCH ×4 (05:54→17:12)
[2017-06-11] MEDS: Boost Glucose Control 8 Ounces PO SCH ×3 (07:25→17:12)
[2017-06-11] MEDS ORDERED: POTASSIUM CHL 10% (20 MEQ/15ML) 15ml ORAL SOLN GT ONE (08:15)
[2017-06-11] MEDS: PARoxetine 20 MG TAB PO SCH (09:36)
[2017-06-11] MEDS: ENOXAPARIN SOD 40 MG/0.4 ML SYRINGE SC SCH (09:36)
[2017-06-11] MEDS: LEVOFLOXACIN 250MG 50 ML IV SCH (09:36)
[2017-06-11] MEDS: FAMOTIDINE 20 MG TAB PO SCH (09:36)
[2017-06-11] MEDS: CALCIUM CARB 500 MG CHEW TAB PO SCH ×2 (09:37→21:47)
[2017-06-11] MEDS: IPRATROPIUM BROM 0.5 MG/2.5ML INH SOL NEB PRN (10:15)
[2017-06-11] MEDS: ALBUTEROL SULF 2.5 MG/0.5ML(0.5%) NEB SOLN NEB PRN (10:15)
[2017-06-11] MEDS: MORPHINE SULFATE 4 MG/ML SYR/VIAL IV PRN ×2 (14:20→21:51)
[2017-06-11] MEDS: LOPERAMIDE HCL 2 MG CAP PO PRN (21:47)
[2017-06-12] MEDS: ACCU-CHEK COMFORT CURVE STRIP VI SCH ×3 (00:25→12:28)
[2017-06-12] MEDS: HYDROcodone-ACET 5/325MG TAB PO PRN (01:47)
[2017-06-12] MEDS: MORPHINE SULFATE 4 MG/ML SYR/VIAL IV PRN (03:58)
[2017-06-12 05:00] VITALS: BP 140/62
[2017-06-12] MEDS: DILTIAZEM HCL 60 MG TAB PO SCH (05:24)
[2017-06-12] MEDS: InsuLIN REG 1unit/0.01ml Soln (100units/ml) SC SCH ×3 (05:30→12:00)
[2017-06-12 09:09] VITALS: BP 117/55
[2017-06-12] MEDS: Boost Glucose Control 8 Ounces PO SCH ×2 (10:09→12:28)
[2017-06-12] MEDS: PARoxetine 20 MG TAB PO SCH (10:10)
[2017-06-12] MEDS: LEVOFLOXACIN 250MG 50 ML IV SCH (10:10)
[2017-06-12] MEDS: ENOXAPARIN SOD 40 MG/0.4 ML SYRINGE SC SCH (10:10)
[2017-06-12] MEDS: FAMOTIDINE 20 MG TAB PO SCH (10:10)
[2017-06-12] MEDS: CALCIUM CARB 500 MG CHEW TAB PO SCH (10:10)
[2017-06-12] MEDS ORDERED: POTASSIUM CHL 10% (20 MEQ/15ML) 15ml ORAL SOLN GT ONE (10:30)
[2017-06-12 13:00] VITALS: BP 108/57
[2017-06-12 13:18] VITALS: BP 140/62
== END 2017-06-12 15:40 | disposition home or self-care (01) | DRG 720 ==
LOC: EDBD 15:13 → ER 15:13 → TELE 15:14 → TELE-CENTR 22:21
PROVIDERS: ADMIT Nurse Practitioner; ATTEND Family Medicine
DX: A41.9 Sepsis, unspecified organism (principal); E43 Unspecified severe protein-calorie malnutrition; G93.41 Metabolic encephalopathy; D61.818 Other pancytopenia; C90.00 Multiple myeloma not having achieved remission; E11.65 Type 2 diabetes mellitus with hyperglycemia; J44.1 Chronic obstructive pulmonary disease with (acute) exacerbation; F32.9 Major depressive disorder, single episode, unspecified; N39.0 Urinary tract infection, site not specified; I10 Essential (primary) hypertension; I48.91 Unspecified atrial fibrillation; Z86.73 Personal history of transient ischemic attack (TIA), and cerebral infarction without residual deficits; Z90.710 Acquired absence of both cervix and uterus; Z79.899 Other long term (current) drug therapy; Z90.49 Acquired absence of other specified parts of digestive tract; Z88.0 Allergy status to penicillin; Z68.1 Body mass index [BMI] 19.9 or less, adult
CPT/HCPCS: 36415; 36600; 51702; 71045; 80048; 80053; 81001; 82805; 82962; 83036; 83605; 83735; 83880; 84484; 85007; 85025; 85027; 87040; 87045; 87081; 87086; 87088; 87186; 87493; 87899; 93005; 94640; 96365; 96375; 97163; 99291; J1442; J1815; J1956; J2405; J7060

== ENCOUNTER 2017-06-28 19:22 | Emergency (ER) | payer MEDICARE, OTHER ==
[~2017-06-28] VITALS: Ht 167.6 cm; Wt 44.0 kg
[2017-06-28 21:12] LABS: Platelet Count (auto) 195 10^3/uL (140-450); White Blood Cell 2.3 10^3/uL (4.4-10.8)
[2017-06-28 21:15] LABS: Mean Corpuscular Hemoglobin 33.1 pg (28.0-32.0); Mean Corpuscular Hgb Conc. 34.1 g/dL (32.0-36.0); Mean Corpuscular Volume 97.1 fL (80.0-100.0); Red Blood Cells 1.96 10^6/uL (4.0-5.20)
[2017-06-28 21:29] LABS: Albumin 3.6 g/dL (3.4-5.0); BUN/Creatinine Ratio 20.9; Calcium 8.6 mg/dL (8.5-10.1); Potassium 3.3 mmol/L (3.5-5.1)
[2017-06-28 21:30] LABS: Red Cell Distribution Width 21.6 % (11.8-14.3)
[2017-06-28 21:31] LABS: Hemoglobin 6.5 g/dL (12.2-16.2)
[2017-06-28 21:32] LABS: Basophils % (manual) 0 (0.0-2.0); Bilirubin, Total 0.5 mg/dL (0.2-1.0); Blast Cells 0; Eosinophils % (manual) 0 (0-7); Metamyelocytes % 0; Myelocytes % 0; Promyelocytes % 0; Reactive Lymphocytes 0
[2017-06-28 21:46] LABS: INR 1.13 (0.9-1.15); Partial Thromboplastin Time 28.6 sec (22.64-33.71); Prothrombin Time 12.3 sec (9.37-12.3)
[2017-06-28 22:58] LABS: Band Neutrophils % (manual) 6; Lymphocytes % (manual) 48 (10.0-50.0); Monocytes % (manual) 24 (0-12)
[2017-06-28 23:15] LABS: Urine WBC None Seen /hpf (0 - 5)
[2017-06-28 23:25] LABS: Urine Bacteria NONE SEEN /hpf (None Seen); Urine Blood Negative /uL (Negative); Urine Mucus FEW (None Seen); Urine Specific Gravity 1.016 (1.001-1.035)
[2017-06-28 23:51] VITALS: BP 105/52
[2017-06-29 00:05] VITALS: BP 112/49
[2017-06-29 01:13] VITALS: BP 108/56
[2017-06-29 02:16] VITALS: BP 110/54
[2017-06-29] MEDS ORDERED: HYDROcodone-ACET 10/325MG TAB PO ONE (02:45)
== END 2017-06-29 03:42 | disposition home or self-care (01) ==
LOC: ER 19:22
DX: D64.9 Anemia, unspecified (principal); D72.829 Elevated white blood cell count, unspecified; E87.6 Hypokalemia; I48.91 Unspecified atrial fibrillation; J44.9 Chronic obstructive pulmonary disease, unspecified; E11.9 Type 2 diabetes mellitus without complications; I10 Essential (primary) hypertension; Z87.440 Personal history of urinary (tract) infections; Z90.49 Acquired absence of other specified parts of digestive tract; Z90.710 Acquired absence of both cervix and uterus; Z88.0 Allergy status to penicillin; Z79.899 Other long term (current) drug therapy
CPT/HCPCS: 36415; 36430; 71045; 80053; 81001; 83880; 84484; 85007; 85027; 85379; 85610; 85730; 86850; 86900; 86901; 86920; 93005; 99285; P9016